=== PATIENT | female | born 1970 | race Caucasian/White ===

== ENCOUNTER 2019-01-03 17:42 | Emergency (ER) | payer OTHER ==
[2019-01-03] MEDS ORDERED: SODIUM CHLORIDE 0.9% 1,000 ML IV STA (17:53)
[2019-01-03] MEDS ORDERED: MECLIZINE 12.5 MG TAB PO STA (18:27)
[2019-01-03] MEDS ORDERED: METOCLOPRAMIDE 5 MG/ML 2 ML VIAL IVP STA (18:27)
--- NOTE | 2019-01-03 18:38 | ED ---
General Adult HPI - General Chief complaint: Dizziness Stated complaint: Dizzy/vomiting Time Seen by Provider: 01/03/19 17:52 Source: patient Mode of arrival: ambulatory Limitations: no limitations - History of Present Illness Initial comments: Dictation was produced using [employer] dictation software. please excuse any grammatical, word or spelling errors. Chief Complaint: 48-year-old female past medical history of lupus presents with vertiginous symptoms. History of Present Illness: Patient is a 48-year-old female she has past medical history of lupus presents today with vertiginous symptoms upon waking this morning. Patient denies having any symptoms like this in the past. She reports that she has a sensation of the room spinning. No ear loss. No tinnitus. No other neuro deficits noted. Patient has never experienced anything like this before. She states that her symptoms are worse when looking to the left and when moving especially when lying flat from a sitting position. She feels much improved while at rest and worse with movement. The ROS documented in this emergency department record has been reviewed and confirmed by me. Those systems with pertinent positive or negative responses have been documented in the HPI. All other systems are other negative and/or noncontributory. PHYSICAL EXAM: General Impression: Alert and oriented x3, not in acute distress HEENT: Normocephalic atraumatic, extra-ocular movements intact, pupils equal and reactive to light bilaterally, mucous membranes moist. Cardiovascular: Heart regular rate and rhythm, S1&S2 audible, no murmurs, rubs or gallops Chest: Lungs clear to auscultation bilaterally, no rhonchi, no wheeze, no rales Abdomen: Bowel sounds present, abdomen soft, non-tender, non-distended, no organomegaly Musculoskeletal: Pulses present and equal in all extremities, no peripheral edema Motor: no focal deficits noted Neurological: CN II-XII grossly intact, nystagmus with fast phase to the left when looking left, no direction changing nystagmus when looking to the right. Symptoms elicited when lying flat and turning to the left. No gait ataxia Skin: Intact with no visualized rashes Psych: Normal affect and mood ED course: 48 year old female with clinical presentation consistent with peripheral vertigo. All signs upon arrival are within acceptable limits.Laboratory evaluation obtained. Laboratory evaluation shows findings within acceptable limits. Urinalysis is negative. Patient reevaluated after admission patient with Antivert and Reglan with much improved symptoms. Patient clear for discharge. She is given some by mouth Zofran and Antivert. Advised follow-up with PCP upon discharge. EKG interpretation: Ventricular rate 70, normal sinus rhythm, right bundle branch block,. 186, QRS 144, QTc 453. No ID prolongation, no QTC prolongation, no ST or T-wave changes noted. No old EKG for comparison. Overall, this EKG is unremarkable - Related Data Home Medications Medication Instructions Recorded Confirmed Meclizine HCl [Bonine] 25 mg PO DAILY PRN 01/03/19 01/03/19 Previous Rx's Medication Instructions Recorded Meclizine [Antivert] 25 mg PO TID PRN #15 tab 01/03/19 Ondansetron Odt [Zofran Odt] 4 mg PO Q8HR PRN #12 tab 01/03/19 Allergies Allergy/AdvReac Type Severity Reaction Status Date / Time No Known Allergies Allergy Verified 01/03/19 17:46 Review of Systems ROS Statement: Those systems with pertinent positive or pertinent negative responses have been documented in the HPI. ROS Other: All systems not noted in ROS Statement are negative. Past Medical History Additional Past Medical History / Comment(s): Lupus History of Any Multi-Drug Resistant Organisms: None Reported Past Surgical History: Appendectomy, Tubal Ligation, Uterine Ablation Past Psychological History: No Psychological Hx Reported Smoking Status: Never smoker Past Alcohol Use History: None Reported Past Drug Use History: None Reported General Exam Limitations: no limitations Course Vital Signs 01/03/19 01/03/19 17:46 19:25 Temperature 98.1 F 98.1 F Pulse Rate 74 68 Respiratory 18 17 Rate Blood Pressure 116/74 115/65 O2 Sat by Pulse 97 98 Oximetry Medical Decision Making - Lab Data Result diagrams: 01/03/19 18:28 01/03/19 18:28 Lab Results 01/03/19 01/03/19 01/03/19 Range/Units 18:28 18:28 18:28 WBC 7.1 (3.8-10.6) k/uL RBC 5.05 (3.80-5.40) m/uL Hgb 15.0 (11.4-16.0) gm/dL Hct 44.3 (34.0-46.0) % MCV 87.8 (80.0-100.0) fL MCH 29.6 (25.0-35.0) pg MCHC 33.8 (31.0-37.0) g/dL RDW 13.5 (11.5-15.5) % Plt Count 365 (150-450) k/uL Neutrophils % 72 % Lymphocytes % 21 % Monocytes % 4 % Eosinophils % 1 % Basophils % 1 % Neutrophils # 5.1 (1.3-7.7) k/uL Lymphocytes # 1.5 (1.0-4.8) k/uL Monocytes # 0.3 (0-1.0) k/uL Eosinophils # 0.1 (0-0.7) k/uL Basophils # 0.0 (0-0.2) k/uL Sodium 141 (137-145) mmol/L Potassium 4.5 (3.5-5.1) mmol/L Chloride 108 H (98-107) mmol/L Carbon Dioxide 23 (22-30) mmol/L Anion Gap 10 mmol/L BUN 10 (7-17) mg/dL Creatinine 0.60 (0.52-1.04) mg/dL Est GFR (CKD-EPI)AfAm >90 (>60 ml/min/1.73 sqM) Est GFR (CKD-EPI)NonAf >90 (>60 ml/min/1.73 sqM) Glucose 100 H (74-99) mg/dL Calcium 9.9 (8.4-10.2) mg/dL Magnesium 2.2 (1.6-2.3) mg/dL Urine Color Yellow Urine Appearance Clear (Clear) Urine pH 6.0 (5.0-8.0) Ur Specific [place] 1.018 (1.001-1.035) Urine Protein Negative (Negative) Urine Glucose (UA) Negative (Negative) Urine Ketones 1+ H (Negative) Urine Blood Negative (Negative) Urine Nitrite Negative (Negative) Urine Bilirubin Negative (Negative) Urine Urobilinogen <2.0 (<2.0) mg/dL Ur Leukocyte Esterase Negative (Negative) Disposition Clinical Impression: Vertigo Disposition: HOME SELF-CARE Condition: Good Instructions (If sedation given, give patient instructions): Dizziness (ED) Prescriptions: Meclizine [Antivert] 25 mg PO TID PRN #15 tab PRN Reason: dizziness Ondansetron Odt [Zofran Odt] 4 mg PO Q8HR PRN #12 tab PRN Reason: Nausea Is patient prescribed a controlled substance at d/c from ED?: No Referrals: None,Stated [Primary Care Provider] - 1-2 days Time of Disposition: 19:57
[2019-01-03 18:40] LABS: Appearance,Urine Clear (Clear); Bilirubin,Urine Negative (Negative); Blood,Urine Negative (Negative); Color,Urine Yellow; Glucose,Urine (UA) Negative (Negative); Ketones,Urine 1+ (Negative); Leukocyte Esterase,Urine Negative (Negative); Nitrite,Urine Negative (Negative); Protein,Urine Negative (Negative); Specific Gravity,Urine 1.018 (1.001-1.035); Urobilinogen,Urine <2.0 mg/dL (<2.0)
[2019-01-03 18:45] LABS: African American GFR (CKD) >90 (>60 ml/min/1.73 sqM); Anion Gap 10 mmol/L; Blood Urea Nitrogen 10 mg/dL (7-17); Calcium 9.9 mg/dL (8.4-10.2); Carbon Dioxide 23 mmol/L (22-30); Chloride 108 mmol/L (98-107); Glucose 100 mg/dL (74-99); Magnesium 2.2 mg/dL (1.6-2.3); Potassium 4.5 mmol/L (3.5-5.1); Sodium 141 mmol/L (137-145)
[2019-01-03 18:47] LABS: Basophils % (A) 1 %; Eosinophils # (A) 0.1 k/uL (0-0.7); Eosinophils % (A) 1 %; HCT 44.3 % (34.0-46.0); Lymphocytes # (A) 1.5 k/uL (1.0-4.8); Lymphocytes % (A) 21 %; MCH 29.6 pg (25.0-35.0); MCHC 33.8 g/dL (31.0-37.0); MCV 87.8 fL (80.0-100.0); Mean Platelet Volume 5.5; Monocytes # (A) 0.3 k/uL (0-1.0); Monocytes % (A) 4 %; Neutrophils # (A) 5.1 k/uL (1.3-7.7); Neutrophils % (A) 72 %; Platelet Count 365 k/uL (150-450); RBC 5.05 m/uL (3.80-5.40); RDW 13.5 % (11.5-15.5); WBC 7.1 k/uL (3.8-10.6)
[2019-01-03 20:33] VITALS: BP 110/66; PULSE 65; RESP 18; TEMP 97.9
== END 2019-01-03 20:37 | disposition home or self-care (01) ==
LOC: EC 17:42
DX: H55.00 Unspecified nystagmus (principal); I45.10 Unspecified right bundle-branch block
CPT/HCPCS: 36415; 93005; 80048; 83735; 85025; 81003; 99284; 96374; 96361 ×2; J2765

== ENCOUNTER 2020-11-13 08:45 | Emergency (ER) | payer OTHER ==
[2020-11-13 08:50] VITALS: BP 111/67; PULSE 75; RESP 18; TEMP 97.8
--- NOTE | 2020-11-13 09:52 | XR ---
EXAMINATION TYPE: XR elbow complete LT DATE OF EXAM: 11/13/2020 CLINICAL HISTORY: All injury yesterday with pain TECHNIQUE: Frontal, lateral and oblique images of the left elbow are obtained. COMPARISON: None FINDINGS: There is abnormal fat pad signs with bulging anterior fat pad and visualized posterior fat pad. Seen best on oblique image there is vertical lucency consistent with nondisplaced intra-articu lar fracture through the radial head. The overlying soft tissue appears unremarkable. IMPRESSION: There is acute nondisplaced intra-articular fracture through the radial head with associ ated hemarthrosis.
--- NOTE | 2020-11-13 10:32 | ED ---
General Adult HPI - General Chief complaint: Fall Stated complaint: Injury-elbow pain,fall Time Seen by Provider: 11/13/20 08:58 Source: patient, RN notes reviewed Mode of arrival: ambulatory Limitations: no limitations - History of Present Illness Initial comments: 42-year-old female presents to the emergency room for left elbow pain. Patient slipped in her driveway yesterday and fell on her bilateral outstretched hands. Patient states she has pain in both elbows however the pain is minimal and the right elbow. Patient states her pain is much worse in the left elbow. States that she cannot extend her elbow because of the pain. States lifting her arm hurts. Patient denies hitting her head or loss of consciousness. Patient has no other complaints at this time including shortness of breath, chest pain, abdominal pain, nausea or vomiting, headache, or visual changes. - Related Data Home Medications Medication Instructions Recorded Confirmed Meclizine HCl [Bonine] 25 mg PO DAILY PRN 01/03/19 01/03/19 Previous Rx's Medication Instructions Recorded Meclizine [Antivert] 25 mg PO TID PRN #15 tab 01/03/19 Ondansetron Odt [Zofran Odt] 4 mg PO Q8HR PRN #12 tab 01/03/19 Allergies Allergy/AdvReac Type Severity Reaction Status Date / Time No Known Allergies Allergy Verified 11/13/20 08:50 Review of Systems ROS Statement: Those systems with pertinent positive or pertinent negative responses have been documented in the HPI. ROS Other: All systems not noted in ROS Statement are negative. Past Medical History Additional Past Medical History / Comment(s): Lupus History of Any Multi-Drug Resistant Organisms: None Reported Past Surgical History: Appendectomy, Tubal Ligation, Uterine Ablation Past Psychological History: No Psychological Hx Reported Smoking Status: Never smoker Past Alcohol Use History: None Reported Past Drug Use History: None Reported General Exam - General Exam Comments Initial Comments: Left elbow: Flexion limited to 45. Flexion to 90. Minimal edema noted around the left elbow. Radial pulses 2+. Capillary refill less than 2 seconds, underwriting account representative strength 5 out of 5. Right elbow: Full range of motion. No tenderness. Radial pulse 2+. Capillary refill less than 2 seconds. Limitations: no limitations General appearance: alert, in no apparent distress Head exam: Present: atraumatic Eye exam: Present: normal appearance, PERRL, EOMI. Absent: scleral icterus, conjunctival injection ENT exam: Present: normal exam, mucous membranes moist Neck exam: Present: normal inspection, full ROM. Absent: tenderness Respiratory exam: Present: normal lung sounds bilaterally. Absent: respiratory distress, wheezes Cardiovascular Exam: Present: regular rate, normal rhythm, normal heart sounds Course Vital Signs 11/13/20 08:46 Temperature 97.8 F Pulse Rate 75 Respiratory 18 Rate Blood Pressure 111/67 O2 Sat by Pulse 96 Oximetry Medical Decision Making - Medical Decision Making X-ray of the left elbow shows an acute nondisplaced intra-articular fracture through the radial head with associated hemarthrosis. Patient was given a sling. Patient will follow up with orthopedics. She'll return here for any worsening symptoms. Patient refused any additional pain medication as she had taken Motrin prior to arrival and did not want anything else. Disposition Clinical Impression: Elbow fracture, left Disposition: HOME SELF-CARE Condition: Good Instructions (If sedation given, give patient instructions): Elbow Fracture (ED) Additional Instructions: Please wear sling but continued to the range of motion of the shoulder. Take motrin and tylenol for pain. Follow up with orthopedics. Return to the emerge ncy room for any worsening symptoms. Is patient prescribed a controlled substance at d/c from ED?: No Referrals: Jake Marte MD [STAFF PHYSICIAN] - 1-2 days Time of Disposition: 10:30
== END 2020-11-13 10:52 | disposition home or self-care (01) ==
LOC: EC 08:45
DX: S52.125A Nondisplaced fracture of head of left radius, initial encounter for closed fracture (principal); Z90.49 Acquired absence of other specified parts of digestive tract; Z98.51 Tubal ligation status; W01.0XXA Fall on same level from slipping, tripping and stumbling without subsequent striking against object, initial encounter
CPT/HCPCS: 99283